=== PATIENT | female | born 1990 | race American Indian/Alaskan Native ===

== ENCOUNTER 2022-10-16 13:36 | Emergency (ER) | payer MEDICAID ==
[2022-10-16] MEDS ORDERED: Sodium Chloride 0.9% 10 ML Syringe FLUSH PRN (13:45)
[2022-10-16] MEDS ORDERED: levETIRAcetam in NaCl (iso-os) 1,500 MG in Premix Bag 1 BAG IV ONE ×2 (13:50)
[2022-10-16] MEDS ORDERED: Sodium Chloride 0.9% 1,000 ML IV ONE (13:50)
[2022-10-16 14:30] LABS: ANION GAP 12.9 mEq/L (7-13); CHLORIDE,CL 103 mmol/L (98-107); SODIUM,NA 138 mmol/L (136-145)
[2022-10-16 14:33] LABS: ESTIMATED GFR 98 mL/min (>=60)
== END 2022-10-16 15:41 | disposition home or self-care (01) ==
LOC: DL.ED 13:36
DX: R56.9 Unspecified convulsions (principal); Z76.0 Encounter for issue of repeat prescription; Z72.0 Tobacco use; Z79.899 Other long term (current) drug therapy
CPT/HCPCS: 36415; 80053; 80177; 82550; 84703; 85025; 96361; 96374; 99284-25; J1953; J3490; J7030

== ENCOUNTER 2022-11-03 12:54 | Emergency (ER) | payer MEDICAID ==
[2022-11-03] MEDS ORDERED: levETIRAcetam in NaCl (iso-os) 1,000 MG in Premix Bag 1 BAG IV ONE ×2 (13:20)
== END 2022-11-03 14:19 | disposition home or self-care (01) ==
LOC: DL.ED 12:54
DX: G40.909 Epilepsy, unspecified, not intractable, without status epilepticus (principal); Z76.0 Encounter for issue of repeat prescription; S00.83XA Contusion of other part of head, initial encounter; Z91.018 Allergy to other foods; Z91.040 Latex allergy status; Z91.048 Other nonmedicinal substance allergy status; Z79.899 Other long term (current) drug therapy
CPT/HCPCS: 81025; 96374; 99283; 99284; J1953

== ENCOUNTER 2022-11-22 13:53 | Emergency (ER) | payer MEDICAID ==
[2022-11-22] MEDS ORDERED: levETIRAcetam 500 MG Tab PO ONE (13:54)
[2022-11-22] MEDS ORDERED: levETIRAcetam 500 MG Tab ONE (15:03)
== END 2022-11-22 15:10 | disposition home or self-care (01) ==
LOC: DL.ED 13:53
DX: G40.909 Epilepsy, unspecified, not intractable, without status epilepticus (principal); Z76.0 Encounter for issue of repeat prescription; Z91.018 Allergy to other foods; Z91.040 Latex allergy status; Z91.048 Other nonmedicinal substance allergy status; Z79.899 Other long term (current) drug therapy
CPT/HCPCS: 99281; A9270

== ENCOUNTER 2022-11-28 12:23 | Emergency (ER) | payer MEDICAID | END 2022-11-28 13:40 | disposition home or self-care (01) | LOC: DL.ED 12:23 | DX: Z13.89 Encounter for screening for other disorder (principal); Z72.0 Tobacco use; Z91.018 Allergy to other foods; Z91.040 Latex allergy status; Z91.048 Other nonmedicinal substance allergy status | CPT/HCPCS: 82947; 99284 ==

== ENCOUNTER 2023-01-05 05:04 | Emergency (ER) | payer MEDICAID ==
[2023-01-05 03:59] LABS: ANION GAP 14.8 mEq/L (7-13)
== END 2023-01-05 06:41 | disposition home or self-care (01) ==
LOC: DL.ED 05:04
DX: O03.4 Incomplete spontaneous abortion without complication (principal); Z72.0 Tobacco use; Z91.018 Allergy to other foods; Z91.040 Latex allergy status; Z91.048 Other nonmedicinal substance allergy status
CPT/HCPCS: 36415; 76815; 76817; 80053; 84702; 85025; 99284